=== PATIENT | female | born 1985 | race African-American/Black ===

== ENCOUNTER 2018-07-06 17:10 | Emergency (ER) | payer SELFPAY ==
[~2018-07-06] VITALS: Ht 162.6 cm; Wt 56.7 kg
[2018-07-06 17:10] VITALS: BP 131/83
[2018-07-06] MEDS ORDERED: ACETAMINOPHEN ES 500 MG TABLET ONE (18:21)
[2018-07-06] MEDS: ACETAMINOPHEN 325 MG TABLET PO ONE (18:26)
--- NOTE | 2018-07-06 18:30 | NUR ---
PATIENT LEFT IN STABLE CONDITION VIA AMBULATORY. HEALTH TEACHING AND EDUCATION RENDERED.
== END 2018-07-06 18:30 | disposition home or self-care (01) ==
LOC: ER 17:14
DX: S16.1XXA Strain of muscle, fascia and tendon at neck level, initial encounter (principal); R51 Headache; F10.10 Alcohol abuse, uncomplicated; Y90.9 Presence of alcohol in blood, level not specified; Z60.2 Problems related to living alone; V49.49XA Driver injured in collision with other motor vehicles in traffic accident, initial encounter; Y93.89 Activity, other specified; Y92.410 Unspecified street and highway as the place of occurrence of the external cause; Y99.8 Other external cause status
CPT/HCPCS: A4606; Z7610